=== PATIENT | male | born 1955 | race Caucasian/White ===

== ENCOUNTER 2023-06-11 13:12 | Inpatient (IN) | payer MEDICARE, BC ==
[~2023-06-11] VITALS: Ht 185.4 cm; Wt 89.5 kg
[2023-06-11 14:06] LABS: BASOPHILS # (AUTO) 0.1 X10'3 (0-0.2); BASOPHILS % (AUTO) 0.6 % (0-1); EOSINOPHILS # (AUTO) 0.1 X10'3 (0-0.9); EOSINOPHILS % (AUTO) 1.2 % (0-6); HEMATOCRIT 47.8 % (42.0-52.0); HEMOGLOBIN 16.3 g/dl (14.0-17.9); LYMPHOCYTES % (AUTO) 9.4 % (21-51); MEAN CORPUSCULAR HEMOGLOBIN 29.3 PG (27.0-31.0); MEAN CORPUSCULAR VOLUME 86.2 FL (78-98); MEAN PLATELET VOLUME 7.3 FL (7.4-10.4); MONOCYTES # (AUTO) 0.9 X10'3 (0-0.9); MONOCYTES % (AUTO) 8.3 % (2-12); NEUTROPHILS # (AUTO) 8.3 X10'3 (1.8-7.7); NEUTROPHILS % (AUTO) 80.5 % (42-75); PLATELET COUNT 279 X10'3 (140-440); RED BLOOD COUNT 5.55 X10'6 (4.70-6.10); WHITE BLOOD COUNT 10.3 X10'3 (4.5-11.0)
[2023-06-11 14:13] LABS: APTT 29 SECONDS (22-32); PROTHROMBIN TIME 10.9 SECONDS (9.0-12.0)
[2023-06-11 14:15] LABS: ALANINE AMINOTRANSFERASE 33 U/L (12-78); ALBUMIN 3.5 G/DL (3.4-5.0); ALBUMIN/GLOBULIN RATIO 0.9 (1.1-1.5); ALKALINE PHOSPHATASE 91 IU/L (46-116); ANION GAP 10 (8-16); ASPARTATE AMINO TRANSFERASE 19 U/L (10-37); BILIRUBIN,TOTAL 0.6 MG/DL (0.1-1.0); BLOOD UREA NITROGEN 14 MG/DL (7-18); BUN/CREATININE RATIO 13.6 (10.0-20.0); CALCIUM 8.9 MG/DL (8.5-10.1); CHLORIDE 105 MMOL/L (99-107); CREATININE 1.03 MG/DL (0.60-1.10); GLUCOSE 106 MG/DL (70-104); SODIUM 138 MMOL/L (135-145); TOTAL CARBON DIOXIDE 23.1 MMOL/L (24-32); TOTAL PROTEIN 7.2 G/DL (6.4-8.2); eCRCL 78 ML/MIN; eGFR 72 ML/MIN
[2023-06-11] MEDS: normal saline 1000ml 1,000 ML IV SCH ×2 (15:30→18:12)
[2023-06-11] MEDS ORDERED: aspirin 300mg supp.rect RC ONE (16:30)
[2023-06-11] MEDS ORDERED: OLAN10TA73 PO (17:31)
[2023-06-11] MEDS ORDERED: BUSP5TAB3 PO (17:31)
[2023-06-11] MEDS ORDERED: BREX2TAB PO (17:31)
[2023-06-11] MEDS ORDERED: CARV-50 PO (17:31)
[2023-06-11] MEDS ORDERED: AMLO5TAB16 PO (17:31)
[2023-06-11] MEDS ORDERED: OLAN5TAB75 PO (17:31)
[2023-06-11] MEDS ORDERED: ESZO2TAB31 PO (17:31)
[2023-06-11] MEDS ORDERED: BUPR300T86 PO (17:31)
[2023-06-11] MEDS ORDERED: potassium Cl 20 mEq SR tablet PO PRN ×2 (17:55)
[2023-06-11] MEDS ORDERED: acetaminophen 325mg tablet PO PRN (17:55)
[2023-06-11] MEDS ORDERED: ondansetron/PF 4mg/2ml inj IV PRN (17:55)
[2023-06-11] MEDS ORDERED: magnesium Cl slow-release 64mg tablet PO PRN (17:55)
[2023-06-11] MEDS ORDERED: magnesium 2GM in 50ml NS 50 ML IV PRN (17:55)
[2023-06-11] MEDS ORDERED: potassium Cl 40MEQ/1/2NS 520ml 520 ML IV PRN (17:55)
[2023-06-11] MEDS ORDERED: magnesium 4gm in 100ml NS 100 ML IV PRN (17:55)
[2023-06-11] MEDS ORDERED: PERFLUTREN PROTEIN-A MICROSPHR (Optison) 0.22 MG/ML 3ML VIAL IV ONE (18:10)
[2023-06-11 18:34] LABS: BILIRUBIN,URINE NEGATIVE (Neg); CLARITY,URINE CLEAR (Clear); COLOR,URINE YELLOW (Yellow); GLUCOSE, URINE NEGATIVE (Neg); KETONES,URINE 15 mg/dl (Neg); LEUKOCYTE ESTERASE ,URINE NEGATIVE (Neg); NITRITES, URINE NEGATIVE (Neg); OCCULT BLOOD,URINE NEGATIVE (Neg); PH,URINE 6.5 (4.8-8.0); PROTEIN,URINE NEGATIVE (Neg); UROBILINOGEN,URINE 0.2 E.U/dL (0.2-1.0)
[2023-06-11 18:35] LABS: UA COLLECTION TYPE FOLEY CATH
[2023-06-11] MEDS ORDERED: zolpidem 5mg tablet PO PRN (19:00)
[2023-06-11] MEDS: carVEDilol 12.5mg tablet PO SCH (19:58)
[2023-06-11] MEDS: enoxaparin 40mg/0.4ml syringe SQ SCH (21:09)
[2023-06-12] MEDS: normal saline 1000ml 1,000 ML IV SCH ×4 (01:15→20:55)
[2023-06-12 03:31] LABS: BASOPHILS % (AUTO) 0.7 % (0-1); EOSINOPHILS % (AUTO) 1.8 % (0-6); HEMATOCRIT 46.5 % (42.0-52.0); HEMOGLOBIN 15.7 g/dl (14.0-17.9); LYMPHOCYTES % (AUTO) 12.1 % (21-51); MEAN CORPUSCULAR HEMOGLOBIN 29.4 PG (27.0-31.0); MEAN CORPUSCULAR HGB CONC 33.8 g/dL (33.0-36.5); MEAN PLATELET VOLUME 7.7 FL (7.4-10.4); NEUTROPHILS % (AUTO) 76.4 % (42-75); PLATELET COUNT 249 X10'3 (140-440); RED BLOOD COUNT 5.34 X10'6 (4.70-6.10); RED CELL DISTRIBUTION WIDTH 13.8 % (11.5-14.5); WHITE BLOOD COUNT 9.1 X10'3 (4.5-11.0)
[2023-06-12 03:32] LABS: BASOPHILS # (AUTO) 0.1 X10'3 (0-0.2); EOSINOPHILS # (AUTO) 0.2 X10'3 (0-0.9); LYMPHOCYTES # (AUTO) 1.1 X10'3 (1.1-4.8); MONOCYTES # (AUTO) 0.8 X10'3 (0-0.9)
[2023-06-12 03:41] LABS: ALANINE AMINOTRANSFERASE 21 U/L (12-78); ALBUMIN 3.3 G/DL (3.4-5.0); ALBUMIN/GLOBULIN RATIO 0.9 (1.1-1.5); ALKALINE PHOSPHATASE 86 IU/L (46-116); ANION GAP 9 (8-16); ASPARTATE AMINO TRANSFERASE 20 U/L (10-37); BILIRUBIN,TOTAL 0.8 MG/DL (0.1-1.0); BLOOD UREA NITROGEN 12 MG/DL (7-18); BUN/CREATININE RATIO 11.3 (10.0-20.0); CALCIUM 8.6 MG/DL (8.5-10.1); CHLORIDE 106 MMOL/L (99-107); CHOL/HDL RATIO 3.8 (0.00-4.99); CHOLESTEROL 174 MG/DL (0-200); CREATININE 1.06 MG/DL (0.60-1.10); GLUCOSE 88 MG/DL (70-104); HDL CHOLESTEROL 46 MG/DL (35-60); LDL CHOLESTEROL 106 MG/DL (50-100); POTASSIUM 3.7 MMOL/L (3.5-5.1); SODIUM 139 MMOL/L (135-145); TOTAL CARBON DIOXIDE 24.4 MMOL/L (24-32); TOTAL PROTEIN 6.8 G/DL (6.4-8.2); TRIGLYCERIDES 116 MG/DL (20-135); eCRCL 75 ML/MIN; eGFR 69 ML/MIN
[2023-06-12 04:02] LABS: HEMOGLOBIN A1C 5.6 % (4.5-6.2)
[2023-06-12 08:00] VITALS: BP 163/78; PULSE 93; RESP 16; TEMP 97.7; O2SAT 96
[2023-06-12] MEDS ORDERED: amLODIPine 5mg tablet PO SCH (08:00)
[2023-06-12] MEDS: carVEDilol 12.5mg tablet PO SCH ×2 (09:03→19:48)
[2023-06-12] MEDS: busPIRone 5mg tablet PO SCH (09:03)
[2023-06-12] MEDS: atorvastatin 20mg tablet PO SCH (09:04)
[2023-06-12] MEDS: aspirin 81mg, enteric-coated 1 TAB TABLET.DR PO SCH (09:04)
[2023-06-12] MEDS: clopidogrel 75mg tablet PO SCH (09:05)
[2023-06-12] MEDS: buPROPion SR 150mg tablet PO SCH ×2 (09:05→19:48)
[2023-06-12] MEDS: OLANZAPINE 5 MG TABLET PO SCH (09:05)
[2023-06-12 10:00] VITALS: BP 115/86; PULSE 79; RESP 19; TEMP 98; O2SAT 97
[2023-06-12 18:00] VITALS: BP 131/101; PULSE 94; RESP 18; TEMP 98.4; O2SAT 93
[2023-06-12] MEDS: enoxaparin 40mg/0.4ml syringe SQ SCH (19:49)
[2023-06-12 22:00] VITALS: BP 113/78; PULSE 89; RESP 20; TEMP 98.5; O2SAT 95
[2023-06-13 02:08] VITALS: BP 122/86; PULSE 81; RESP 16; TEMP 98; O2SAT 95
[2023-06-13 06:00] VITALS: BP 124/86; PULSE 82; RESP 19; TEMP 97.6; O2SAT 96
[2023-06-13 06:27] LABS: BASOPHILS % (AUTO) 0.3 % (0-1); EOSINOPHILS # (AUTO) 0.1 X10'3 (0-0.9); EOSINOPHILS % (AUTO) 1.1 % (0-6); HEMATOCRIT 42.2 % (42.0-52.0); HEMOGLOBIN 14.3 g/dl (14.0-17.9); LYMPHOCYTES # (AUTO) 0.8 X10'3 (1.1-4.8); LYMPHOCYTES % (AUTO) 9.3 % (21-51); MEAN CORPUSCULAR HEMOGLOBIN 29.2 PG (27.0-31.0); MEAN CORPUSCULAR HGB CONC 33.9 g/dL (33.0-36.5); MEAN CORPUSCULAR VOLUME 86.1 FL (78-98); MEAN PLATELET VOLUME 7.3 FL (7.4-10.4); MONOCYTES # (AUTO) 0.7 X10'3 (0-0.9); MONOCYTES % (AUTO) 8.3 % (2-12); PLATELET COUNT 216 X10'3 (140-440); WHITE BLOOD COUNT 8.7 X10'3 (4.5-11.0)
[2023-06-13 06:35] LABS: ALANINE AMINOTRANSFERASE 20 U/L (12-78); ALBUMIN/GLOBULIN RATIO 0.9 (1.1-1.5); ALKALINE PHOSPHATASE 82 IU/L (46-116); ANION GAP 9 (8-16); ASPARTATE AMINO TRANSFERASE 18 U/L (10-37); BILIRUBIN,TOTAL 0.7 MG/DL (0.1-1.0); BLOOD UREA NITROGEN 13 MG/DL (7-18); CHLORIDE 106 MMOL/L (99-107); GLUCOSE 108 MG/DL (70-104); POTASSIUM 3.9 MMOL/L (3.5-5.1); SODIUM 138 MMOL/L (135-145); TOTAL CARBON DIOXIDE 23.2 MMOL/L (24-32); TOTAL PROTEIN 6.4 G/DL (6.4-8.2); eCRCL 80 ML/MIN; eGFR 74 ML/MIN
[2023-06-13 10:00] VITALS: BP 140/93; PULSE 83; RESP 18; TEMP 98.5; O2SAT 95
[2023-06-13] MEDS: busPIRone 5mg tablet PO SCH (11:17)
[2023-06-13] MEDS: atorvastatin 20mg tablet PO SCH (11:18)
[2023-06-13] MEDS: clopidogrel 75mg tablet PO SCH (11:18)
[2023-06-13] MEDS: carVEDilol 12.5mg tablet PO SCH (11:18)
[2023-06-13] MEDS: OLANZAPINE 5 MG TABLET PO SCH (11:18)
[2023-06-13] MEDS: aspirin 81mg, enteric-coated 1 TAB TABLET.DR PO SCH (11:18)
[2023-06-13] MEDS: buPROPion SR 150mg tablet PO SCH (11:26)
[2023-06-13] MEDS ORDERED: ATOR20TA66 PO (13:42)
[2023-06-13] MEDS ORDERED: CLOP75TA34 PO (13:42)
[2023-06-13] MEDS ORDERED: ASPI-1071 PO (13:43)
== END 2023-06-13 16:45 | disposition home health service (06) | DRG 65 ==
LOC: ER 13:14 → ED HOLD 17:58 → EDBEDREQ 06-12 02:52 → ORTHO 4S 06-12 07:57
PROVIDERS: ADMIT Internal Medicine; ATTEND Internal Medicine
DX: I63.9 Cerebral infarction, unspecified (principal); F32.3 Major depressive disorder, single episode, severe with psychotic features; G81.91 Hemiplegia, unspecified affecting right dominant side; R47.01 Aphasia; R29.707 NIHSS score 7; I10 Essential (primary) hypertension; R29.810 Facial weakness; R47.02 Dysphasia; Z86.73 Personal history of transient ischemic attack (TIA), and cerebral infarction without residual deficits; Z79.899 Other long term (current) drug therapy; Z88.6 Allergy status to analgesic agent
CPT/HCPCS: 36415; 70551; 71045; 80053; 80061; 81003; 82948; 83036; 85025; 85610; 85730; 86885; 86900; 86901; 92507; 92508; 92616; 93306; 93880; 97163; 97530; 99285; A4338; C1758; G0378; J1650; J7030